=== PATIENT | male | born 1990 | race African-American/Black ===

== ENCOUNTER 2023-08-17 11:16 | Emergency (ER) | payer OTHER ==
[~2023-08-17] VITALS: Ht 177.8 cm; Wt 203.0 kg
[2023-08-17] MEDS ORDERED: ACET325C5 PO (11:28)
[2023-08-17] MEDS ORDERED: ALEV220T22 PO (11:29)
[2023-08-17] MEDS: TETRACAINE 0.5% OPHTH SOLN 4ML OU ONE (13:10)
[2023-08-17] MEDS: diphenhydrAMINE 50MG/ML VIAL IV STA (13:57)
[2023-08-17] MEDS: METOCLOPRAMIDE INJ 10MG/2ML VIAL IV ONE (13:57)
[2023-08-17] MEDS: NS 1,000 ML IV ONE (13:57)
[2023-08-17] MEDS: dexAMETHasone 20MG/5ML VIAL IV ONE (13:57)
[2023-08-17 14:13] LABS: BASO % 0.4 % (0.0-1.0); EOS % 0.8 % (0.0-3.0); HEMOGLOBIN 14.8 g/dl (13.5-17.5); LYMPH # 2.6 10^3/uL (1.5-5.0); LYMPH % 48.7 % (24.0-44.0); MEAN CORPUSCULAR HEMOGLOBIN 29.5 pg (27.0-33.0); MEAN CORPUSCULAR HGB CONC 32.9 g/dl (32.0-36.5); MEAN CORPUSCULAR VOLUME 89.6 fl (80.0-96.0); MONO # 0.5 10^3/uL (0.0-0.8); MONO % 10.2 % (2.0-8.0); NEUTROPHILS # 2.1 10^3/uL (1.5-8.5); NEUTROPHILS % 39.7 % (36.0-66.0); PLATELET COUNT, AUTOMATED 236 10^3/uL (150-450); RED BLOOD COUNT 5.02 10^6/uL (4.30-6.10); WHITE BLOOD COUNT 5.3 10^3/uL (4.0-10.0)
[2023-08-17 14:25] LABS: C REACTIVE PROTEIN QUANTITATIV < 0.40 MG/DL (<1.0)
[2023-08-17 14:26] LABS: BLOOD UREA NITROGEN 11 MG/DL (9-23); CALCIUM LEVEL 9.1 MG/DL (8.5-10.1); CARBON DIOXIDE LEVEL 29 MMOL/L (20-31); CHLORIDE LEVEL 105 MMOL/L (98-107); CREATININE FOR GFR 1.19 MG/DL (0.70-1.30); GLOMERULAR FILTRATION RATE > 60.0 (>60); GLUCOSE, FASTING 85 MG/DL (60-100); POTASSIUM SERUM 4.3 MMOL/L (3.5-5.1); SODIUM LEVEL 139 MMOL/L (136-145)
[2023-08-17 14:29] LABS: ERYTHROCYTE SEDIMENTATION RATE 4 mm/hr (0-15)
[2023-08-17 15:17] VITALS: BP 123/82; TEMP 97.1; O2SAT 100
== END 2023-08-17 15:27 | disposition home or self-care (01) ==
LOC: M ED 11:16
DX: R51.9 Headache, unspecified (principal); H40.9 Unspecified glaucoma; F17.200 Nicotine dependence, unspecified, uncomplicated
CPT/HCPCS: 70450; 80048; 85025; 85652; 86140; 87486; 87581; 87633; 87798; 96374; 96375; 99284; J1100; J1200; J2765